=== PATIENT | male | born 1990 | race Two or more races ===

== ENCOUNTER 2021-01-16 01:35 | Emergency (ER) | payer OTHER ==
[~2021-01-16] VITALS: Ht 160 cm; Wt 68.0 kg
[2021-01-16] MEDS ORDERED: ZITHROMAX500 MG PO (03:54)
[2021-01-16] MEDS ORDERED: ZYNCOF 20-400120 ML PO (03:54)
== END 2021-01-16 04:06 ==
LOC: ER 01:35
DX: R05.8 Other specified cough (principal); Z20.822 Contact with and (suspected) exposure to COVID-19

== ENCOUNTER → 2021-02-16 | Emergency (ER) | payer OTHER ==
[~2021-02-16] VITALS: Ht 160 cm; Wt 68.0 kg
[~2021-02-16] MED LIST: ZITHROMAX500 MG PO; ZYNCOF 20-400120 ML PO
== END | disposition left against medical advice (07) ==
LOC: ER 22:30
DX: Z53.21 Procedure and treatment not carried out due to patient leaving prior to being seen by health care provider (principal)